=== PATIENT | male | born 1960 | race Caucasian/White ===

== ENCOUNTER → 2016-04-22 | Outpatient (CLI) | payer BC ==
--- NOTE | 2016-04-23 15:11 | ECHOS ---
DATE OF SERVICE: 04/22/2016 AGE: 56Y SEX: M HT: 72" WT: 236 lbs. Protocol Sharif: X Others: Stress Echo Stage: 3 Dur. of Exercise: 9:00 *Heart Rate Blood Pressure *Rest: 88 Rest: 121/55 * *Max. Achieved: 143 Maximum BP: 161/60 85% PMHR: 139 100% PMHR: 164 *METS: 10.1 INDICATIONS: Coronary artery disease, chest pain. MEDICATIONS: Januvia, lisinopril, metformin, Lipitor, aspirin. Patient was exercised for a total period of 9 minutes. A peak heart rate of 143 was achieved. Maximum blood pressure of 161/60 mmHg was noted. Resting EKG shows normal sinus rhythm with normal IN interval and QRS duration and normal ST-T waves. No ST segment depression suggestive of ischemia is noted. Occasional PVCs are noted. The baseline echocardiographic images reveals normal left ventricular chamber size with normal left ventricular systolic function. In the immediate postexercise period, normal increase in the wall thickness and contractility is noted. FINAL IMPRESSION: 1. This stress echocardiographic study is negative for stress-induced ischemia. 2. EKG portion of the stress test is not suggestive of ischemia. 3. Patient's exercise tolerance is normal.
== END | disposition home or self-care (01) ==
LOC: RADNMMAIN 08:55
PROVIDERS: ATTEND Family Medicine
DX: I25.10 Atherosclerotic heart disease of native coronary artery without angina pectoris (principal)
CPT/HCPCS: 93350; 93017; Q9957

== ENCOUNTER 2016-05-19 07:00 | Day surgery (SDC) | payer BC ==
[2016-05-15 10:19] VITALS: BMI 31.8
[~2016-05-19 07:00] MED LIST: LACTATED RINGERS 1,000 ML IV SCH; LIDOCAINE 1% 20 ML VIAL (10MG/ML) FOR IV START INTRADERMA PRN
[2016-05-19 07:21] VITALS: TEMP 97.1
[2016-05-19 07:23] LABS: Glucose,Whole Blood 180 mg/dL (75-99)
[2016-05-19] MEDS ORDERED: PROPOFOL 10 MG/ML 20 ML VIAL IV ONE (08:18)
--- NOTE | 2016-05-19 09:05 | P.PCN ---
Date of Procedure: 05/19/16 Procedure(s) Performed: Procedure: Esophagogastroduodenoscopy and biopsy and esophageal dilation using the Microvasive yvhbvhi-qya-mkndb balloon dilators size 15-18 mm Preoperative diagnosis: Chronic reflux symptoms and recent issues with dysphagia. Postoperative diagnosis: 1. Small sliding hiatal hernia with no definite esophagitis or Aragon's esophagus. 2. Benign distal esophageal stricture allowing the endoscope through, dilated up to 18 mm using the Microvasive yanuuiv-kev-fgnut balloon dilator 15-18 mm. 3. Mild gastritis and duodenitis.. preparation and sedation: Was provided by anesthesia. Brief clinical history: The patient is a 56-year-old male with history of chronic reflux symptoms who I have evaluated in the office earlier this month regarding chronic reflux symptoms and recent onset of dysphagia. Apparently, he had reflux in the past and has required dilation that served him well for many years and has been off acid suppressive medications for more than 15 years. He said that he was recently started on blood pressure and cholesterol medications and that brought back his symptoms. He has no weight loss, bleeding or anemia. He does have issues with constipation and his last colonoscopy was 12 years ago. The patient stopped drinking alcohol 1 month ago or so. We started with this evaluation to assess for esophagitis or complicated reflux disease, consideration can be given for elective colonoscopy in the future. Procedure: With the patient on his left lateral decubitus position and after informed consent and adequate sedation, I passed the Olympus-GIF 160 video upper endoscope through the cricopharyngeus down the esophagus. There was no definite esophagitis noted or any evidence of Aragon's esophagus. GE junction was around 43-44 centimeters from the incisors and there was a small sliding hiatal hernia around 1 cm. There was a benign short stricture at the level of the GE junction that allowed advancement of the endoscope. The endoscope was then passed into the stomach which was insufflated with air and inspected in detail including the retroflex view in the cardia. There was some mottling and erythema in the antrum but no ulcers or erosions. Pyloric channel did not show any ulcers. Duodenal bulb, post bulbar area and descending duodenum showed some erythema and edema but no ulcers, erosions or bleeding. I obtained multiple biopsies from the duodenum and antrum and I proceeded to dilate the stricture and completed the exam by obtaining biopsies from the esophagus. The esophageal dilation was accomplished by passing through the operating channel of the endoscope the Microvasive fnxdthl-bew-vzjtp balloon dilator size 15-18 mm. I centered the balloon at the level of the stricture and inflated it in a stepwise fashion up to 18 mm at which level there appeared to be satisfactory dilation. The patient tolerated the procedure well and did not have any immediate complications. Plan: The patient was reassured. He will be on clear liquids today then his diet can be advanced tomorrow as tolerated. He will continue antireflux diet and measures. Consideration can be given to maintaining acid suppressive therapy for 8-12 weeks especially if he continues to have heart bishop and the biopsies show evidence of esophagitis. I would be happy to see in follow-up in the office if his symptoms recur. He will follow up with you as planned.
[2016-05-19 09:22] VITALS: BP 138/96; PULSE 60; RESP 18
== END 2016-05-19 10:00 | disposition home or self-care (01) ==
LOC: ORWHC2ENDO 07:00
DX: K22.2 Esophageal obstruction (principal); K29.50 Unspecified chronic gastritis without bleeding; K21.0 Gastro-esophageal reflux disease with esophagitis; F17.200 Nicotine dependence, unspecified, uncomplicated; E11.9 Type 2 diabetes mellitus without complications; Z79.84 Long term (current) use of oral hypoglycemic drugs; Z79.82 Long term (current) use of aspirin; Z79.899 Other long term (current) drug therapy; Z88.0 Allergy status to penicillin
CPT/HCPCS: 88305; 88342; 43239; 43249; J2704; C1726

== ENCOUNTER 2017-12-07 07:38 | Day surgery (SDC) | payer BC ==
[2017-12-03 11:55] VITALS: BMI 32.5
[~2017-12-07 07:38] MED LIST changes: -LIDOCAINE 1% 20 ML VIAL (10MG/ML) FOR IV START INTRADERMA PRN
[2017-12-07 07:53] VITALS: TEMP 98.1
[2017-12-07] MEDS ORDERED: LIDOCAINE 1% 20 ML VIAL (10MG/ML) FOR IV START INTRADERMA ONE (08:08)
[2017-12-07 08:14] LABS: Glucose,Whole Blood 205 mg/dL (75-99)
[2017-12-07] MEDS ORDERED: LIDOCAINE 1% INJ 10MG/ML (20 ML MDV) ONE (09:02)
[2017-12-07] MEDS ORDERED: PROPOFOL 10 MG/ML 20 ML VIAL IV ONE (09:02)
[2017-12-07 09:34] VITALS: RESP 16
--- NOTE | 2017-12-07 09:44 | P.PCN ---
Date of Procedure: 12/07/17 Procedure(s) Performed: Procedure: Total colonoscopy. Preoperative diagnosis: Change in bowel habits. Postoperative diagnosis: Sigmoid diverticulosis with no evidence of acute diverticulitis, strictures, polyps or cancer. Preparation: HalfLytely prep. Sedation: Was provided by anesthesia. Brief clinical history: The patient is a 57-year-old male who is referred for this evaluation because of change in bowel habits and caliber of his stools. The patient has multiple bowel movements in the morning and he describes his stools as thin and ribbonlike. There is no bleeding or anemia. He had a colonoscopy around 10 years ago. This evaluation is to assess for neoplasia or other pathology. Procedure: With the patient on his left lateral decubitus position and after informed consent and adequate sedation, the perianal area was inspected and it did not show any fissures or fistulas. There were no masses felt on digital rectal examination. The Olympus CFQ 160L video colonoscope was then inserted in the rectum in the usual fashion and advanced to the cecum. I intubated the ileocecal valve and examined the terminal ileum. There were a few diverticular orifices seen scattered in the sigmoid but I saw no evidence of acute diverticulitis or strictures. No polyps or tumors were seen. The mucosa of the colon and terminal ileum appeared healthy. I retroflexed the endoscope in the rectum before the endoscope was withdrawn. The patient tolerated the procedure well. Plan: The patient was reassured. Discussed dietary measures. Consideration can be given for a trial with an anti-spasmodic in the morning and at bedtime for symptomatic relief as it is possible that we could be dealing with an element of spastic bowel to account for his symptoms. Other possibilities would include dietary factors and medications. With his history of diabetes, would keep in mind the possibility of neuropathy and bacterial overgrowth especially if the has diarrhea and loose stools. He will discuss that with you and he will follow with you as planned. I would be happy to see in the office if his symptoms persist. For colon cancer screening I suggested repeat exam in 10 years.
[2017-12-07 09:52] VITALS: BP 131/81; PULSE 65
== END 2017-12-07 10:27 | disposition home or self-care (01) ==
LOC: ORWHC2ENDO 07:38
DX: K57.30 Diverticulosis of large intestine without perforation or abscess without bleeding (principal); E11.9 Type 2 diabetes mellitus without complications; Z86.718 Personal history of other venous thrombosis and embolism; F41.9 Anxiety disorder, unspecified; Z79.84 Long term (current) use of oral hypoglycemic drugs; Z79.82 Long term (current) use of aspirin
CPT/HCPCS: 45378; J2001; J2704

== ENCOUNTER 2019-07-26 13:26 | Emergency (ER) | payer BC ==
[2019-07-26 14:22] LABS: Appearance,Urine Clear (Clear); Bilirubin,Urine Negative (Negative); Blood,Urine Negative (Negative); Color,Urine Yellow; Glucose,Urine (UA) 4+ (Negative); Ketones,Urine 1+ (Negative); Leukocyte Esterase,Urine Negative (Negative); Nitrite,Urine Negative (Negative); PH, Urine 5.5 (5.0-8.0); Protein,Urine Negative (Negative); Specific Gravity,Urine 1.036 (1.001-1.035); Urobilinogen,Urine <2.0 mg/dL (<2.0)
--- NOTE | 2019-07-26 14:34 | ED ---
Psych HPI - General Chief Complaint: Psychiatric Symptoms Stated Complaint: Suicidal thoughts Time Seen by Provider: 07/26/19 13:36 Source: patient Mode of arrival: ambulatory - History of Present Illness Initial Comments: Patient is a 59-year-old male presenting to the emergency department for psychiatric evaluation. Patient states about 7 years ago he was started on xeralto which "fried his brain". States she is never felt the same since. States as of recently, it began affecting his work where he has to take more time off work. States he has been having some suicidal thoughts and does not want to live anymore. States "I know I have guns or I can find a tall building in the area". States she does not see a counselor or psychiatrist. States that his primary care physician does not listen to him. - Related Data Home Medications Medication Instructions Recorded Confirmed Aspirin [Adult Low Dose Aspirin EC] 81 mg PO DAILY 05/15/16 05/27/18 Multivitamins, Thera [Multivitamin] 1 tab PO DAILY 05/15/16 05/27/18 [place]-3/Dha/Epa/Fish Oil [Fish Oil 1 each PO DAILY 05/15/16 05/27/18 500 mg Softgel] Cholecalciferol (Vitamin D3) 2,000 unit PO DAILY 12/03/17 05/27/18 [Vitamin D3] Magnesium 200 mg PO DAILY 12/03/17 05/27/18 Dulaglutide [Trulicity] 1.5 mg SQ HAGER 05/25/18 05/27/18 Allergies Allergy/AdvReac Type Severity Reaction Status Date / Time No Known Allergies Allergy Verified 07/26/19 13:33 Review of Systems ROS Statement: Those systems with pertinent positive or pertinent negative responses have been documented in the HPI. ROS Other: All systems not noted in ROS Statement are negative. Past Medical History Past Medical History: Diabetes Mellitus, Deep Vein Thrombosis (DVT) Additional Past Medical History / Comment(s): having difficulty swallowing, has had EGD with dilation in past History of Any Multi-Drug Resistant Organisms: None Reported Past Surgical History: Hernia Repair Additional Past Surgical History / Comment(s): INGUINAL AND UMBILICAL HERNIA REPAIR, Colonoscopy, EGD with dilation Past Anesthesia/Blood Transfusion Reactions: No Reported Reaction Past Psychological History: Anxiety Smoking Status: Current every day smoker Past Alcohol Use History: Occasional Past Drug Use History: Marijuana - Past Family History Mother Family Medical History: Cancer Additional Family Medical History / Comment(s): BREAST CANCER General Exam Limitations: no limitations General appearance: alert, in no apparent distress Head exam: Present: atraumatic, normocephalic, normal inspection Eye exam: Present: normal appearance, PERRL, EOMI Pupils: Present: normal accommodation ENT exam: Present: normal exam, normal oropharynx, mucous membranes moist Neck exam: Present: normal inspection, full ROM Respiratory exam: Present: normal lung sounds bilaterally. Absent: respiratory distress, wheezes, rales Cardiovascular Exam: Present: regular rate, normal rhythm, normal heart sounds. Absent: bradycardia, tachycardia, irregular rhythm Extremities exam: Present: normal inspection, full ROM Back exam: Present: normal inspection, full ROM Neurological exam: Present: alert, oriented X3 Psychiatric exam: Present: normal affect, depressed Skin exam: Present: warm, dry, intact, normal color Course Vital Signs 07/26/19 13:28 Temperature 98.9 F Pulse Rate 87 Respiratory 16 Rate Blood Pressure 141/86 O2 Sat by Pulse 97 Oximetry Medical Decision Making - Medical Decision Making Patient is a 59-year-old male presenting to the emergency department for psychiatric evaluation. Physical examination is unremarkable. Patient does have suicidal thoughts and ideations. She has evaluated the patient and they would like to admit him for further psychiatric management. Case discussed with . - Lab Data Lab Results 07/26/19 07/26/19 07/26/19 Range/Units 17:02 Unknown Unknown POC Glucose (mg/dL) 272 H (75-99) mg/dL POC Glu Search Marketing Analyst ID [place] Urine Color Yellow Urine Appearance Clear (Clear) Urine pH 5.5 (5.0-8.0) Ur Specific [place] 1.036 H (1.001-1.035) Urine Protein Negative (Negative) Urine Glucose (UA) 4+ H (Negative) Urine Ketones 1+ H (Negative) Urine Blood Negative (Negative) Urine Nitrite Negative (Negative) Urine Bilirubin Negative (Negative) Urine Urobilinogen <2.0 (<2.0) mg/dL Ur Leukocyte Esterase Negative (Negative) Urine Opiates Screen Not Detected (NotDetected) Ur Oxycodone Screen Not Detected (NotDetected) Urine Methadone Screen Not Detected (NotDetected) Ur Propoxyphene Screen Not Detected (NotDetected) Ur Barbiturates Screen Not Detected (NotDetected) U Tricyclic Antidepress Not Detected (NotDetected) Ur Phencyclidine Scrn Not Detected (NotDetected) Ur Amphetamines Screen Not Detected (NotDetected) U Methamphetamines Scrn Not Detected (NotDetected) U Benzodiazepines Scrn Not Detected (NotDetected) Urine Cocaine Screen Not Detected (NotDetected) U Marijuana (THC) Screen Not Detected (NotDetected) Disposition Clinical Impression: Depression, Suicidal ideation Disposition: ADMITTED IP TO THIS HOSP Condition: Good Instructions (If sedation given, give patient instructions): Depression (ED) Additional Instructions: Patient will be admitted Is patient prescribed a controlled substance at d/c from ED?: No Referrals: Troy Shaw MD [Primary Care Provider] - 1-2 days Time of Disposition: 17:42
[2019-07-26 14:41] LABS: Amphetamine Screen,Urine Not Detected (NotDetected); Barbiturate Screen,Urine Not Detected (NotDetected); Benzodiazepines Screen,Urine Not Detected (NotDetected); Cocaine Screen,Urine Not Detected (NotDetected); Methadone Screen, Urine Not Detected (NotDetected); Opiate Screen,Urine Not Detected (NotDetected); Oxycodone Screen, Urine Not Detected (NotDetected); Phencyclidine Screen,Urine Not Detected (NotDetected); Tricyclic Antidepressant,Urine Not Detected (NotDetected); Urn Cannabinoid Scrn Not Detected (NotDetected)
[2019-07-26 17:13] LABS: Glucose,Whole Blood 272 mg/dL (75-99)
[2019-07-26 18:33] VITALS: BP 131/80; PULSE 77; RESP 18; TEMP 98.2
--- NOTE | 2019-07-27 01:10 | ED ---
Medical Decision Making - Medical Decision Making This patient's 59-year-old man who had been seen by the physician dermatology physician assistant and EPS. I was asked to go into the patient as she was feeling much better and did want to go home. I patient has a safety plan and would like to follow up as outpatient. He states that he will definitely return should his mood worse in such that it was when he had first come in to be seen. - Lab Data Lab Results 07/26/19 07/26/19 07/26/19 Range/Units 17:02 Unknown Unknown POC Glucose (mg/dL) 272 H (75-99) mg/dL POC Glu Manager Online ID [place] Urine Color Yellow Urine Appearance Clear (Clear) Urine pH 5.5 (5.0-8.0) Ur Specific [place] 1.036 H (1.001-1.035) Urine Protein Negative (Negative) Urine Glucose (UA) 4+ H (Negative) Urine Ketones 1+ H (Negative) Urine Blood Negative (Negative) Urine Nitrite Negative (Negative) Urine Bilirubin Negative (Negative) Urine Urobilinogen <2.0 (<2.0) mg/dL Ur Leukocyte Esterase Negative (Negative) Urine Opiates Screen Not Detected (NotDetected) Ur Oxycodone Screen Not Detected (NotDetected) Urine Methadone Screen Not Detected (NotDetected) Ur Propoxyphene Screen Not Detected (NotDetected) Ur Barbiturates Screen Not Detected (NotDetected) U Tricyclic Antidepress Not Detected (NotDetected) Ur Phencyclidine Scrn Not Detected (NotDetected) Ur Amphetamines Screen Not Detected (NotDetected) U Methamphetamines Scrn Not Detected (NotDetected) U Benzodiazepines Scrn Not Detected (NotDetected) Urine Cocaine Screen Not Detected (NotDetected) U Marijuana (THC) Screen Not Detected (NotDetected) Disposition Clinical Impression: Depression Disposition: HOME SELF-CARE Condition: Good Instructions (If sedation given, give patient instructions): Depression (ED) Additional Instructions: Please adhere to the safety plan which is been discussed and return immediately should you have any worsening or if there is recurrence of the suicidal idea tion. Is patient prescribed a controlled substance at d/c from ED?: No Referrals: Troy Shaw MD [Primary Care Provider] - 1-2 days
== END 2019-07-27 01:43 | disposition home or self-care (01) ==
LOC: EC 13:26
DX: Z03.818 Encounter for observation for suspected exposure to other biological agents ruled out (principal); R45.851 Suicidal ideations; F32.9 Major depressive disorder, single episode, unspecified; E11.9 Type 2 diabetes mellitus without complications; F17.200 Nicotine dependence, unspecified, uncomplicated; Z79.82 Long term (current) use of aspirin; Z79.84 Long term (current) use of oral hypoglycemic drugs
CPT/HCPCS: 36415; 80306; 81003; 82075; 87635; 99285

== ENCOUNTER → 2019-08-01 | Outpatient (CLI) | payer BC ==
--- NOTE | 2019-08-01 08:17 | MR ---
EXAMINATION TYPE: MR brain wo con DATE OF EXAM: 08/01/2019 COMPARISON: NONE HISTORY: Gonzalez, disorientation TECHNIQUE: Multiplanar, multisequence imaging of the brain and brainstem is performed without IV cont rast. FINDINGS: Diffusion weighted images demonstrate no evidence of a recent infarct or other diffusion abnormality. There is no worrisome extra-axial fluid collection. Overall mild diffuse ventricular and sulcal promi nence consistent with mild age-related cerebral atrophy. Occasional T2 hyperintense foci throughout t he white matter bilaterally. Findings are nonspecific. Roughly 6-8 scattered small lesions. Midline structures demonstrate somewhat empty sella morphology. The craniocervical junction appears within normal limits. Normal vascular flow voids are present. The visualized sinuses are clear and th e globes are intact. Patchy fluid signal left mastoid air cells towards petrous apex axial image 8. IMPRESSION: Mild diffuse age-related cerebral atrophy and mild nonspecific white matter changes may b e on basis of altered vascular mechanics related to products migraine headaches and/or product of chr onic small vessel ischemic change in patient of this age. Possible left-sided petrous apicitis, corre late clinically.
== END | disposition home or self-care (01) ==
LOC: RADMRIMAIN 07:08
PROVIDERS: ATTEND Family Medicine
DX: G31.1 Senile degeneration of brain, not elsewhere classified (principal); R90.89 Other abnormal findings on diagnostic imaging of central nervous system
CPT/HCPCS: 70551